=== PATIENT | male | born 1960 | race Two or more races ===

== ENCOUNTER 2018-01-26 23:31 | Inpatient (IN) | payer SELFPAY ==
[~2018-01-26] VITALS: Ht 165.1 cm; Wt 96.2 kg
[2018-01-26 23:30] VITALS: BP 108/57
[2018-01-26] MEDS ORDERED: SandoSTATIN 50mcg Inj IVP ONE (23:45)
[2018-01-26] MEDS ORDERED: Pantoprazole Inj IVP ONE (23:45)
[2018-01-27] VITALS (8 sets, daily range): BP systolic 105–130; BP diastolic 63–81
--- NOTE | 2018-01-27 00:05 | Emergency Room Report ---
History of Present Illness General Chief Complaint: Gastrointestinal Illness Source: Patient, EMS Present Illness HPI This is a 57-year-old male with a history of alcohol abuse. He drinks daily. He presents with chief complaint of vomiting blood. Onset was just prior to arrival. He said he felt nauseous and weak and had vomiting. Also with black stool. Per EMS his blood pressure was very low and they gave him IV fluid. Initial blood pressure was systolic in the 50s. After 500 mL, it went up to systolic 112. Patient felt weak. Never had this problem before. Denies any pain. Denies any syncope. Allergies: Coded Allergies: No Known Allergies (Unverified , 01/26/18) Patient History Past Medical History: see triage record, old chart reviewed Past Surgical History: other Pertinent Family History: none Social History: Reports: alcohol use Immunizations: other Reviewed Nursing Documentation: PMH: Agreed; PSxH: Agreed Nursing Documentation-PM Past Medical History: No Stated History Review of Systems Eye: Denies: eye pain, blurred vision ENT: Denies: ear pain, nose congestion, throat swelling Respiratory: Denies: cough, shortness of breath Cardiovascular: Denies: chest pain, palpitations Gastrointestinal: Reports: diarrhea, hematemesis; Denies: abdominal pain, nausea Musculoskeletal: Denies: back pain, joint pain Skin: Denies: rash Neurological: Denies: headache, numbness Endocrine: Denies: increased thirst, increased urine Hematologic/Lymphatic: Denies: easy bruising All Other Systems: negative except mentioned in HPI Physical Exam Vital Signs Date Time Temp Pulse Resp B/P (MAP) Pulse Ox O2 Delivery O2 Flow Rate FiO2 01/26/18 23:23 102 16 99 01/26/18 23:23 117/65 Room Air 01/26/18 23:30 97.1 97.1 vitals normal Sp02 EP Interpretation: reviewed, normal General Appearance: well appearing, no apparent distress, alert Head: normocephalic, atraumatic Eyes: bilateral eye PERRL, bilateral eye EOMI ENT: hearing grossly normal, normal pharynx Neck: full range of motion, supple, no meningismus Respiratory: chest non-tender, lungs clear, normal breath sounds Cardiovascular #1: regular rate, rhythm, no murmur Gastrointestinal: normal bowel sounds, non tender, no mass, no organomegaly, no bruit, non-distended Musculoskeletal: back normal, normal range of motion Neurologic: alert, oriented x3 Psychiatric: mood/affect normal Skin: other - Pale Medical Decision Making Diagnostic Impression: Primary Impression: Hematemesis/vomiting blood Qualified Codes: K92.0 - Hematemesis Additional Impressions: UGIB (upper gastrointestinal bleed) New onset type 2 diabetes mellitus Alcohol abuse ER Course Patient presents with an upper GI bleed probably secondary to esophageal varices from his alcohol abuse. Initial hemoglobin stable. Blood pressure low end of normal. I suspect that his hemoglobin will drop. Patient will be admitted for serial H&H and GI consult. I contacted Dr. Santos for admission. Lab Results Impression labs with elevated glucose EKG Diagnostic Results Rate: normal Rhythm: NSR ST Segments: no acute changes Rhythm Strip Diag. Results Rhythm Strip Time: 00:19 EP Interpretation: yes Rate: 100 Rhythm: NSR, no PVC's, no ectopy Chest X-Ray Diagnostic Results Chest X-Ray Diagnostic Results : Chest X-Ray Ordered: Yes # of Views/Limited/Complete: 1 View Indication: Chest Pain EP Interpretation: Yes Interpretation: no consolidation, no effusion, no pneumothorax, no acute cardiopulmonary disease Impression: No acute disease Electronically Signed by: Derek Felix MD Last Vital Signs Date Time Temp Pulse Resp B/P (MAP) Pulse Ox O2 Delivery O2 Flow Rate FiO2 01/26/18 23:30 97.1 100 19 108/57 98 Room Air 97.1 Status: improved Disposition: ADMITTED INPATIENT Condition: Serious DEREK FELIX M.D. Jan 27, 2018 00:05
[2018-01-27 00:06] LABS: ANION GAP 10 mmol/L (5-15); BLOOD UREA NITROGEN 45 mg/dL (7-18); CALCIUM 8.1 MG/DL (8.5-10.1); CARBON DIOXIDE 24 MMOL/L (21-32); CHLORIDE 101 MMOL/L (98-107); CREATININE 1.4 MG/DL (0.55-1.30); POTASSIUM 4.6 MMOL/L (3.5-5.1); SODIUM 135 MMOL/L (136-145)
[2018-01-27 00:08] LABS: BASOPHILS % (AUTO) 0.6 % (0.0-2.0); EOSINOPHILS % (AUTO) 2.3 % (0.0-3.0); HEMATOCRIT 37.1 % (42.0-52.0); LYMPHOCYTES % (AUTO) 21.4 % (20.0-45.0); MEAN CORPUSCULAR VOLUME 91 FL (80-99); MONOCYTES % (AUTO) 4.2 % (1.0-10.0); NEUTROPHILS % (AUTO) 71.5 % (45.0-75.0); PLATELET COUNT 239 K/UL (150-450); RED BLOOD COUNT 4.08 M/UL (4.70-6.10); RED CELL DISTRIBUTION WIDTH 12.1 % (11.6-14.8); WHITE BLOOD COUNT 15.4 K/UL (4.8-10.8)
[2018-01-27 00:11] LABS: ALANINE AMINOTRANSFERASE 42 U/L (12-78); ALBUMIN 2.7 G/DL (3.4-5.0); ALBUMIN/GLOBULIN RATIO 0.9 (1.0-2.7); ALKALINE PHOSPHATASE 76 U/L (46-116); ASPARTATE AMINO TRANSFERASE 35 U/L (15-37); BILIRUBIN,TOTAL 0.4 MG/DL (0.2-1.0)
--- NOTE | 2018-01-27 01:00 | Diagnostic Imaging Report ---
EXAM: XR Chest, 1 View CLINICAL HISTORY: SOB TECHNIQUE: Frontal view of the chest. COMPARISON: No relevant prior studies available. FINDINGS: Lungs: Hypoventilatory exam with bibasilar atelectasis. Pleural space: Unremarkable. No pneumothorax. Heart: Unremarkable. No cardiomegaly. Mediastinum: Unremarkable. Bones/joints: Unremarkable. IMPRESSION: Hypoventilatory exam with bibasilar atelectasis.
[2018-01-27] MEDS ORDERED: Morphine Sulfate 2mg/ml Inj IVP PRN (03:00)
[2018-01-27] MEDS ORDERED: LORazepam 1mg tab ORAL PRN (03:00)
[2018-01-27] MEDS: D5 1/2NS 1,000 ML IV SCH ×2 (03:13→20:34)
[2018-01-27 05:50] LABS: BASOPHILS % (AUTO) 0.8 % (0.0-2.0); EOSINOPHILS % (AUTO) 1.6 % (0.0-3.0); HEMATOCRIT 34.3 % (42.0-52.0); HEMOGLOBIN 11.2 G/DL (14.2-18.0); LYMPHOCYTES % (AUTO) 24.7 % (20.0-45.0); MEAN CORPUSCULAR VOLUME 90 FL (80-99); MONOCYTES % (AUTO) 6.8 % (1.0-10.0); NEUTROPHILS % (AUTO) 66.2 % (45.0-75.0); PLATELET COUNT 244 K/UL (150-450); RED BLOOD COUNT 3.84 M/UL (4.70-6.10); RED CELL DISTRIBUTION WIDTH 11.9 % (11.6-14.8); WHITE BLOOD COUNT 13.9 K/UL (4.8-10.8)
[2018-01-27 06:03] LABS: ALANINE AMINOTRANSFERASE 40 U/L (12-78); ALBUMIN 2.7 G/DL (3.4-5.0); ALBUMIN/GLOBULIN RATIO 0.9 (1.0-2.7); ALKALINE PHOSPHATASE 71 U/L (46-116); ANION GAP 5 mmol/L (5-15); ASPARTATE AMINO TRANSFERASE 28 U/L (15-37); BILIRUBIN,TOTAL 0.3 MG/DL (0.2-1.0); BLOOD UREA NITROGEN 41 mg/dL (7-18); CALCIUM 7.5 MG/DL (8.5-10.1); CARBON DIOXIDE 26 MMOL/L (21-32); CHLORIDE 109 MMOL/L (98-107); CREATININE 0.8 MG/DL (0.55-1.30); POTASSIUM 4.5 MMOL/L (3.5-5.1); SODIUM 140 MMOL/L (136-145)
[2018-01-27] MEDS: NovoLOG Insulin Flexpen SUBQ SCH ×4 (06:12→20:34)
[2018-01-27] MEDS ORDERED: Isovue-300 100ml vial INJ PRN (07:00)
--- NOTE | 2018-01-27 08:35 | General Progress Note ---
Assessment/Plan Problem List: (1) Alcohol abuse ICD Codes: F10.10 - Alcohol abuse, uncomplicated SNOMED: 33592409 (2) Hematemesis/vomiting blood ICD Codes: K92.0 - Hematemesis SNOMED: 6078437 Qualifiers: Qualified Codes: K92.0 - Hematemesis (3) New onset type 2 diabetes mellitus ICD Codes: E11.9 - Type 2 diabetes mellitus without complications SNOMED: 33432386 (4) UGIB (upper gastrointestinal bleed) ICD Codes: K92.2 - Gastrointestinal hemorrhage, unspecified SNOMED: 70109729 Assessment/Plan protonix dc octreotide fu H&H NPO DM control banana bag +/- EGD on Monday Subjective ROS Limited/Unobtainable: Yes Allergies: Coded Allergies: No Known Allergies (Unverified , 01/26/18) Objective Last 24 Hour Vital Signs Date Time Temp Pulse Resp B/P (MAP) Pulse Ox O2 Delivery O2 Flow Rate FiO2 01/27/18 08:00 97.7 93 22 112/67 (82) 96 97.7 01/27/18 04:00 94 01/27/18 04:00 98.6 98 22 110/68 (82) 96 98.6 01/27/18 02:26 97.9 94 22 108/63 (78) 97 97.9 01/27/18 02:08 Room Air 01/27/18 01:40 97.0 93 22 110/65 98 Room Air 93 01/27/18 01:27 97.0 93 22 110/65 98 Room Air 97.0 93 01/27/18 01:06 97.1 94 19 105/65 99 Room Air 97.1 01/26/18 23:30 97.1 100 19 108/57 98 Room Air 97.1 01/26/18 23:23 102 16 117/65 99 Room Air 01/26/18 23:23 102 16 99 Intake and Output 01/26/18 01/27/18 19:00 07:00 Intake Total 0 ml Balance 0 ml Intake Oral 0 ml # Voids 1 # Bowel Movements 2 Laboratory Tests 01/26/18 23:30: Prothrombin Time 10.8, Prothromb Time International Ratio 1.0, Activated Partial Thromboplast Time 19L, Sodium Level 135L, Potassium Level 4.6, Chloride Level 101, Carbon Dioxide Level 24, Anion Gap 10, Blood Urea Nitrogen 45H, Creatinine 1.4H, Estimat Glomerular Filtration Rate 52.1, Glucose Level 339H, Calcium Level 8.1L, Total Bilirubin 0.4, Aspartate Amino Transf (AST/SGOT) 35, Alanine Aminotransferase (ALT/SGPT) 42, Alkaline Phosphatase 76, Total Protein 5.7L, Albumin 2.7L, Globulin 3.0, Albumin/Globulin Ratio 0.9L 01/26/18 23:50: White Blood Count 15.4H, Red Blood Count 4.08L, Hemoglobin 12.0L, Hematocrit 37.1L, Mean Corpuscular Volume 91, Mean Corpuscular Hemoglobin 29.3, Mean Corpuscular Hemoglobin Concent 32.2, Red Cell Distribution Width 12.1, Platelet Count 239, Mean Platelet Volume 8.5, Neutrophils (%) (Auto) 71.5, Lymphocytes (% ) (Auto) 21.4, Monocytes (%) (Auto) 4.2, Eosinophils (%) (Auto) 2.3, Basophils ( %) (Auto) 0.6 01/27/18 05:30: Sodium Level 140, Potassium Level 4.5, Chloride Level 109H, Carbon Dioxide Level 26, Anion Gap 5, Blood Urea Nitrogen 41H, Creatinine 0.8, Estimat Glomerular Filtration Rate > 60, Glucose Level 142#H, Calcium Level 7.5L, Total Bilirubin 0.3, Aspartate Amino Transf (AST/SGOT) 28, Alanine Aminotransferase ( ALT/SGPT) 40, Alkaline Phosphatase 71, Total Protein 5.6L, Albumin 2.7L, Globulin 2.9, Albumin/Globulin Ratio 0.9L, White Blood Count 13.9H, Red Blood Count 3.84L, Hemoglobin 11.2L, Hematocrit 34.3L, Mean Corpuscular Volume 90, Mean Corpuscular Hemoglobin 29.2, Mean Corpuscular Hemoglobin Concent 32.7, Red Cell Distribution Width 11.9, Platelet Count 244, Mean Platelet Volume 8.5, Neutrophils (%) (Auto) 66.2, Lymphocytes (%) (Auto) 24.7, Monocytes (%) (Auto) 6.8, Eosinophils (%) (Auto) 1.6, Basophils (%) (Auto) 0.8 Height (Feet): 5 Height (Inches): 7.00 Weight (Pounds): 212 General Appearance: alert EENT: normal ENT inspection Neck: supple Cardiovascular: normal rate Respiratory/Chest: lungs clear Abdomen: normal bowel sounds, non tender, soft Extremities: non-tender Philip Winter MD Jan 27, 2018 08:35
[2018-01-27] MEDS: Thiamine 100mg in D5W 55ml IVPB SCH (09:49)
[2018-01-27] MEDS: Folic Acid 1 MG, Magnesium Sulfate 2,000 MG, Multivitamin - 12 Injection 10 ML in NS 10... IV SCH (10:13)
--- NOTE | 2018-01-27 12:45 | History and Physical Report ---
DATE OF ADMISSION: 01/27/2018 APPROXIMATE TIME: 9 a.m. CONSULTANTS: 1. Rajat Keith M.D. 2. Antony Mckeon M.D. 3. Dontae Pate M.D. 4. Philip Winter M.D. CHIEF COMPLAINT: Hematemesis, alcohol abuse, new diabetes, and ATN. BRIEF HISTORY: A 57-year-old male, who lives at home, presents with alcohol binge drinking, mostly beer and vodka, he is not sure how much, came to [place], diagnosed with hematemesis. Alcohol abuse was slightly inebriated. The patient was admitted to telemetry for further care. Currently, feeling little better, slight abdominal pain, no complaint. REVIEW OF SYSTEMS: No chest pain. No shortness of breath. Slight nausea. No vomiting or diarrhea. PAST MEDICAL HISTORY: He is not aware of anything. PAST SURGICAL HISTORY: None. MEDICATIONS: Include folic acid, thiamine, pantoprazole, insulin, lorazepam, morphine, Tylenol, IV fluids, and octreotide. ALLERGIES: Denies. SOCIAL HISTORY: Positive smoke. Positive alcohol. No intravenous drug abuse. FAMILY HISTORY: Noncontributory. PHYSICAL EXAMINATION: GENERAL: Slightly anxious in bed, oriented x3, no acute distress. VITAL SIGNS: Temperature 97 degrees, pulse , respirations 22, and blood pressure 112/67. CARDIOVASCULAR: No murmur. LUNGS: Distant and clear. ABDOMEN: Bowel sounds positive. Nontender. Nondistended. EXTREMITIES: No cyanosis, clubbing, or edema. NEUROLOGIC: The patient moves all extremities, but slightly weak. LABORATORY AND DIAGNOSTIC DATA: Labs, at this time, show white count 13, hemoglobin and hematocrit 11 and 34, otherwise CBC is normal. BMP shows chloride 109, BUN 41, creatinine was 1.4, now 0.8, glucose 142, initially was 339, albumin 2.7. INR is 1.0 and PTT 13. ASSESSMENT: 1. Hematemesis. 2. Alcohol abuse. 3. Anemia. 4. New diabetes. 5. Malnutrition. 6. ATN. PLAN: 1. IV fluids. 2. Detox. 3. Blood pressure and blood sugar control. 4. Pain control. 5. Dietary followup. 6. CBC and BMP in the morning. Dax Santos D.O. DR: SALIMA JOB#: [id number] CC:
--- NOTE | 2018-01-27 12:45 | Consultation ---
Consult Note Consult Note [id number] Sinan Ochoa MD Jan 27, 2018 12:45
--- NOTE | 2018-01-27 18:15 | Consultation ---
DATE OF CONSULTATION: 01/27/2018 INFECTIOUS DISEASES CONSULTATION CONSULTING PHYSICIAN: Sinan Ochoa M.D. REFERRING PHYSICIAN: Dax Santos D.O. REASON FOR CONSULTATION: Evaluation of the patient for leukocytosis, possible sepsis, antibiotic management. HISTORY OF PRESENT ILLNESS: The patient is a 57-year-old male, who was admitted to this medical center for vomiting blood. The patient has history of alcohol abuse. The patient was found to have leukocytosis. An Infectious Disease consultation has been requested for evaluation of the patient for possible infectious process contributing to the patient's leukocytosis. PAST MEDICAL HISTORY: Significant for: 1. Alcohol abuse. 2. Diabetes. SURGICAL HISTORY: None. ALLERGIES: No known drug allergies. SOCIAL HISTORY: Significant for smoking and alcohol abuse. No history of drug abuse. FAMILY HISTORY: Not contributing. MEDICATIONS: Currently off of antibiotics. PHYSICAL EXAMINATION: VITAL SIGNS: Temperature 97.3, pulse 66, respiratory rate 18, and blood pressure 128/78. HEENT: No pale conjunctivae. No icterus. NECK: Supple. CHEST: Clear. HEART: S1 and S2. ABDOMEN: Soft, nontender, obese. EXTREMITIES: No cyanosis at this time. NEUROLOGIC: Awake. LABORATORY AND DIAGNOSTIC DATA: White blood cells 13.9, hemoglobin 11, platelets 244,000. At the time of admission, white blood cells 16.4. BUN 41, creatinine 0.8. ALT, AST unremarkable. Alkaline phosphatase unremarkable. Chest x-ray showed bibasilar atelectasis. ASSESSMENT: 1. Leukocytosis due to acute bleed/acute stress, no evidence of sepsis or infection at this point. 2. History of alcohol abuse. 3. Hematemesis. 4. New-onset diabetes. PLAN: 1. We will monitor the patient off of antibiotics. 2. Monitor vital signs. 3. CBC and BMP. 4. We will follow GI recommendations EGD. 5. Based on the patient's clinical course and laboratories, we will do further recommendation. Thank you, Dr. Santos, for allowing me to participate in the care of this patient. I will follow the patient with you during this hospitalization. Sinan Ochoa M.D. DR: Tammi JOB#: [id number] CC:
[2018-01-28] VITALS: BP 158/96
[2018-01-28 04:00] VITALS: BP 126/74
[2018-01-28] MEDS: NovoLOG Insulin Flexpen SUBQ SCH ×4 (06:26→21:17)
[2018-01-28 08:00] VITALS: BP 153/88
--- NOTE | 2018-01-28 08:27 | General Progress Note ---
Assessment/Plan Problem List: (1) Alcohol abuse ICD Codes: F10.10 - Alcohol abuse, uncomplicated SNOMED: 21203457 (2) Hematemesis/vomiting blood ICD Codes: K92.0 - Hematemesis SNOMED: 7293033 Qualifiers: Qualified Codes: K92.0 - Hematemesis (3) New onset type 2 diabetes mellitus ICD Codes: E11.9 - Type 2 diabetes mellitus without complications SNOMED: 23275721 (4) UGIB (upper gastrointestinal bleed) ICD Codes: K92.2 - Gastrointestinal hemorrhage, unspecified SNOMED: 57819875 Assessment/Plan protonix fu H&H clears DM control banana bag +/- EGD if needed Subjective ROS Limited/Unobtainable: Yes Allergies: Coded Allergies: No Known Allergies (Unverified , 01/26/18) Subjective no recurrent GIB Objective Last 24 Hour Vital Signs Date Time Temp Pulse Resp B/P (MAP) Pulse Ox O2 Delivery O2 Flow Rate FiO2 01/28/18 08:00 97.7 75 20 153/88 (109) 98 97.7 01/28/18 04:00 86 01/28/18 04:00 98.4 88 20 126/74 (91) 98 98.4 01/28/18 00:00 98.4 83 20 158/96 (116) 97 98.4 01/28/18 00:00 78 01/27/18 21:00 Room Air 01/27/18 20:00 98.1 89 20 130/81 (97) 96 98.1 01/27/18 20:00 80 01/27/18 16:00 97 01/27/18 16:00 97.7 87 20 127/72 (90) 96 97.7 01/27/18 12:00 97.3 93 20 128/78 (95) 96 97.3 01/27/18 12:00 86 01/27/18 09:00 Room Air Intake and Output 01/27/18 01/28/18 19:00 07:00 Output Total 1400 ml 1500 ml Balance -1400 ml -1500 ml Output Urine Total 1400 ml 1500 ml # Voids 2 Laboratory Tests 01/28/18 07:45: White Blood Count [Pending], Red Blood Count [Pending], Hemoglobin [Pending], Hematocrit [Pending], Mean Corpuscular Volume [Pending], Mean Corpuscular Hemoglobin [Pending], Mean Corpuscular Hemoglobin Concent [Pending], Red Cell Distribution Width [Pending], Platelet Count [Pending], Mean Platelet Volume [ Pending], Neutrophils (%) (Auto) [Pending], Lymphocytes (%) (Auto) [Pending], Monocytes (%) (Auto) [Pending], Eosinophils (%) (Auto) [Pending], Basophils (%) (Auto) [Pending], Prothrombin Time [Pending], Prothromb Time International Ratio [Pending], Sodium Level [Pending], Potassium Level [Pending], Chloride Level [Pending], Carbon Dioxide Level [Pending], Blood Urea Nitrogen [Pending], Creatinine [Pending], Estimat Glomerular Filtration Rate [Pending], Glucose Level [Pending], Calcium Level [Pending], Total Bilirubin [Pending], Aspartate Amino Transf (AST/SGOT) [Pending], Alanine Aminotransferase (ALT/SGPT) [Pending] , Alkaline Phosphatase [Pending], Total Protein [Pending], Albumin [Pending], Globulin [Pending] Height (Feet): 5 Height (Inches): 7.00 Weight (Pounds): 212 General Appearance: lethargic EENT: normal ENT inspection Neck: supple Cardiovascular: normal rate Respiratory/Chest: decreased breath sounds Abdomen: normal bowel sounds, non tender, soft, no organomegaly Extremities: non-tender Philip Winter MD Jan 28, 2018 08:27
[2018-01-28 08:41] LABS: BASOPHILS % (AUTO) 0.8 % (0.0-2.0); EOSINOPHILS % (AUTO) 3.6 % (0.0-3.0); HEMATOCRIT 30.6 % (42.0-52.0); INR 0.9 (0.9-1.1); MEAN CORPUSCULAR VOLUME 90 FL (80-99); MONOCYTES % (AUTO) 4.5 % (1.0-10.0); NEUTROPHILS % (AUTO) 58.2 % (45.0-75.0); PLATELET COUNT 217 K/UL (150-450); RED BLOOD COUNT 3.39 M/UL (4.70-6.10); RED CELL DISTRIBUTION WIDTH 12.2 % (11.6-14.8)
--- NOTE | 2018-01-28 08:54 | General Progress Note ---
Assessment/Plan Problem List: (1) Alcohol abuse ICD Codes: F10.10 - Alcohol abuse, uncomplicated SNOMED: 18953581 (2) Hematemesis/vomiting blood ICD Codes: K92.0 - Hematemesis SNOMED: 9444286 Qualifiers: Qualified Codes: K92.0 - Hematemesis (3) New onset type 2 diabetes mellitus ICD Codes: E11.9 - Type 2 diabetes mellitus without complications SNOMED: 91111550 (4) UGIB (upper gastrointestinal bleed) ICD Codes: K92.2 - Gastrointestinal hemorrhage, unspecified SNOMED: 45011404 Status: unchanged Assessment/Plan bs pain control ivf gi f/u cbc bmp am dc plan Subjective Constitutional: Reports: weakness Allergies: Coded Allergies: No Known Allergies (Unverified , 01/26/18) All Systems: reviewed and negative except above Subjective sleepy calm Objective Last 24 Hour Vital Signs Date Time Temp Pulse Resp B/P (MAP) Pulse Ox O2 Delivery O2 Flow Rate FiO2 01/28/18 08:00 97.7 75 20 153/88 (109) 98 97.7 01/28/18 04:00 86 01/28/18 04:00 98.4 88 20 126/74 (91) 98 98.4 01/28/18 00:00 98.4 83 20 158/96 (116) 97 98.4 01/28/18 00:00 78 01/27/18 21:00 Room Air 01/27/18 20:00 98.1 89 20 130/81 (97) 96 98.1 01/27/18 20:00 80 01/27/18 16:00 97 01/27/18 16:00 97.7 87 20 127/72 (90) 96 97.7 01/27/18 12:00 97.3 93 20 128/78 (95) 96 97.3 01/27/18 12:00 86 01/27/18 09:00 Room Air Intake and Output 01/27/18 01/28/18 19:00 07:00 Output Total 1400 ml 1500 ml Balance -1400 ml -1500 ml Output Urine Total 1400 ml 1500 ml # Voids 2 Laboratory Tests 01/28/18 07:45: White Blood Count 10.0, Red Blood Count 3.39L, Hemoglobin 10.0L, Hematocrit 30.6L, Mean Corpuscular Volume 90, Mean Corpuscular Hemoglobin 29.4, Mean Corpuscular Hemoglobin Concent 32.6, Red Cell Distribution Width 12.2, Platelet Count 217, Mean Platelet Volume 8.1, Neutrophils (%) (Auto) 58.2, Lymphocytes (% ) (Auto) 33.0, Monocytes (%) (Auto) 4.5, Eosinophils (%) (Auto) 3.6H, Basophils (%) (Auto) 0.8, Prothrombin Time 10.0, Prothromb Time International Ratio 0.9, Sodium Level [Pending], Potassium Level [Pending], Chloride Level [Pending], Carbon Dioxide Level [Pending], Blood Urea Nitrogen [Pending], Creatinine [ Pending], Estimat Glomerular Filtration Rate [Pending], Glucose Level [Pending] , Calcium Level [Pending], Total Bilirubin [Pending], Aspartate Amino Transf ( AST/SGOT) [Pending], Alanine Aminotransferase (ALT/SGPT) [Pending], Alkaline Phosphatase [Pending], Total Protein [Pending], Albumin [Pending], Globulin [ Pending] Height (Feet): 5 Height (Inches): 7.00 Weight (Pounds): 212 General Appearance: lethargic EENT: normal ENT inspection Neck: normal alignment Cardiovascular: normal peripheral pulses, normal rate, regular rhythm Respiratory/Chest: chest wall non-tender, lungs clear, normal breath sounds Abdomen: normal bowel sounds, non tender, soft Extremities: normal inspection Edema: no edema noted Arm (L), no edema noted Arm (R), no edema noted Leg (L), no edema noted Leg (R), no edema noted Pedal (L), no edema noted Pedal (R), no edema noted Generalized Neurologic: motor weakness Skin: normal pigmentation, warm/dry Dax Santos DO Jan 28, 2018 08:54
[2018-01-28 08:56] LABS: ALANINE AMINOTRANSFERASE 37 U/L (12-78); ALKALINE PHOSPHATASE 75 U/L (46-116); ANION GAP 7 mmol/L (5-15); ASPARTATE AMINO TRANSFERASE 28 U/L (15-37); BILIRUBIN,TOTAL 0.4 MG/DL (0.2-1.0); BLOOD UREA NITROGEN 19 mg/dL (7-18); CALCIUM 8.4 MG/DL (8.5-10.1); CARBON DIOXIDE 27 MMOL/L (21-32); CHLORIDE 106 MMOL/L (98-107); CREATININE 0.9 MG/DL (0.55-1.30); POTASSIUM 4.3 MMOL/L (3.5-5.1); SODIUM 140 MMOL/L (136-145)
[2018-01-28] MEDS: Folic Acid 1 MG, Magnesium Sulfate 2,000 MG, Multivitamin - 12 Injection 10 ML in NS 10... IV SCH (10:35)
[2018-01-28] MEDS: Thiamine 100mg in D5W 55ml IVPB SCH (10:35)
[2018-01-28 12:00] VITALS: BP 131/70
--- NOTE | 2018-01-28 12:00 | General Progress Note ---
Assessment/Plan Problem List: (1) New onset type 2 diabetes mellitus ICD Codes: E11.9 - Type 2 diabetes mellitus without complications SNOMED: 30438994 (2) UGIB (upper gastrointestinal bleed) ICD Codes: K92.2 - Gastrointestinal hemorrhage, unspecified SNOMED: 16891133 (3) Hematemesis/vomiting blood ICD Codes: K92.0 - Hematemesis SNOMED: 8294567 Qualifiers: Qualified Codes: K92.0 - Hematemesis (4) Alcohol abuse ICD Codes: F10.10 - Alcohol abuse, uncomplicated SNOMED: 64508240 Assessment/Plan check A1c continue NISS Metformin won't be a good choice in the context of ETOH dependence Subjective Allergies: Coded Allergies: No Known Allergies (Unverified , 01/26/18) All Systems: reviewed and negative except above Subjective This is a 57-year-old male with a history of alcohol abuse. He drinks daily. He presents with chief complaint of vomiting blood. Onset was just prior to arrival. He said he felt nauseous and weak and had vomiting. Also with black stool. Per EMS his blood pressure was very low and they gave him IV fluid. Initial blood pressure was systolic in the 50s. After 500 mL, it went up to systolic 112. Patient felt weak. Never had this problem before. Denies any pain. Denies any syncope. Objective Last 24 Hour Vital Signs Date Time Temp Pulse Resp B/P (MAP) Pulse Ox O2 Delivery O2 Flow Rate FiO2 01/28/18 08:10 Room Air 01/28/18 08:00 97.7 75 20 153/88 (109) 98 97.7 01/28/18 07:55 76 01/28/18 04:00 86 01/28/18 04:00 98.4 88 20 126/74 (91) 98 98.4 01/28/18 00:00 98.4 83 20 158/96 (116) 97 98.4 01/28/18 00:00 78 01/27/18 21:00 Room Air 01/27/18 20:00 98.1 89 20 130/81 (97) 96 98.1 01/27/18 20:00 80 01/27/18 16:00 97 01/27/18 16:00 97.7 87 20 127/72 (90) 96 97.7 01/27/18 12:00 97.3 93 20 128/78 (95) 96 97.3 01/27/18 12:00 86 Intake and Output 01/27/18 01/28/18 19:00 07:00 Output Total 1400 ml 1500 ml Balance -1400 ml -1500 ml Output Urine Total 1400 ml 1500 ml # Voids 2 Laboratory Tests 01/28/18 07:45: White Blood Count 10.0, Red Blood Count 3.39L, Hemoglobin 10.0L, Hematocrit 30.6L, Mean Corpuscular Volume 90, Mean Corpuscular Hemoglobin 29.4, Mean Corpuscular Hemoglobin Concent 32.6, Red Cell Distribution Width 12.2, Platelet Count 217, Mean Platelet Volume 8.1, Neutrophils (%) (Auto) 58.2, Lymphocytes (% ) (Auto) 33.0, Monocytes (%) (Auto) 4.5, Eosinophils (%) (Auto) 3.6H, Basophils (%) (Auto) 0.8, Prothrombin Time 10.0, Prothromb Time International Ratio 0.9, Sodium Level 140, Potassium Level 4.3, Chloride Level 106, Carbon Dioxide Level 27, Anion Gap 7, Blood Urea Nitrogen 19H, Creatinine 0.9, Estimat Glomerular Filtration Rate > 60, Glucose Level 128H, Calcium Level 8.4L, Total Bilirubin 0.4, Aspartate Amino Transf (AST/SGOT) 28, Alanine Aminotransferase (ALT/SGPT) 37, Alkaline Phosphatase 75, Total Protein 6.0L, Albumin 3.0L, Globulin 3.0, Albumin/Globulin Ratio 1.0 Height (Feet): 5 Height (Inches): 7.00 Weight (Pounds): 212 General Appearance: no apparent distress Neck: normal alignment Cardiovascular: normal rate Respiratory/Chest: lungs clear Abdomen: normal bowel sounds Edema: no edema noted Arm (L), no edema noted Arm (R), no edema noted Leg (L), no edema noted Leg (R), no edema noted Pedal (L), no edema noted Pedal (R), no edema noted Generalized Objective Current Medications Medications (Trade) Dose Ordered Sig/[place] Route PRN Reason Start Time Stop Time Status Last Admin Dose Admin Acetaminophen (Tylenol) 650 mg Q4H PRN ORAL Mild Pain/Temp > 100.5 01/27/18 03:00 02/26/18 02:59 Dextrose (Dextrose 50%) 25 ml Q30M PRN IV Hypoglycemia 01/27/18 03:00 02/26/18 02:59 Dextrose (Dextrose 50%) 50 ml Q30M PRN IV Hypoglycemia 01/27/18 03:00 02/26/18 02:59 Dextrose/Sodium Chloride 1,000 ml @ 60 mls/hr [id number] IV 01/27/18 03:00 02/26/18 02:59 01/27/18 20:34 Folic Acid 1 mg/ Magnesium Sulfate 2000 mg/ Multivitamins 10 ml/Sodium Chloride 1,014.2 ml @ 125 mls/ hr Q24H IV 01/27/18 10:00 02/26/18 09:59 01/28/18 10:35 Insulin Aspart (NovoLOG) BEFORE MEALS AND HS SUBQ 01/27/18 06:30 02/26/18 06:29 01/27/18 06:12 Iopamidol (Isovue-300 100ml) 100 ml NOW PRN INJ Radiology Procedure 01/27/18 07:00 01/29/18 06:50 Lorazepam (Ativan) 1 mg Q4HR PRN ORAL For Anxiety 01/27/18 03:00 02/03/18 02:59 Morphine Sulfate (Morphine Sulfate) 2 mg Q4H PRN IVP For Pain 01/27/18 03:00 02/03/18 02:59 Pantoprazole (Protonix) 40 mg EVERY 12 HOURS ORAL 01/27/18 09:00 02/26/18 08:59 01/28/18 08:39 Thiamine HCl 100 mg/Sodium Chloride 56 ml @ 112 mls/hr Q24H IVPB 01/27/18 10:00 02/26/18 09:59 01/28/18 10:35 Item Value Date Time Bedside Blood Glucose 138 mg/dl H 01/28/18 1130 Bedside Blood Glucose 142 mg/dl H 01/28/18 0625 Bedside Blood Glucose 113 mg/dl 01/27/18 203 Bedside Blood Glucose 113 mg/dl 01/27/18 1630 Bedside Blood Glucose 111 mg/dl 01/27/18 1130 Antony Mckeon MD Jan 28, 2018 12:00
[2018-01-28] MEDS: D5 1/2NS 1,000 ML IV SCH (13:56)
[2018-01-28 16:00] VITALS: BP 152/84
[2018-01-28 20:00] VITALS: BP 127/79
[2018-01-29] VITALS: BP 109/65
[2018-01-29 04:00] VITALS: BP 123/85
[2018-01-29] MEDS: D5 1/2NS 1,000 ML IV SCH (06:24)
[2018-01-29] MEDS: NovoLOG Insulin Flexpen SUBQ SCH (06:24)
[2018-01-29 06:46] LABS: HEMATOCRIT 29.2 % (42.0-52.0); HEMOGLOBIN 10.1 G/DL (14.2-18.0); MEAN CORPUSCULAR VOLUME 89 FL (80-99); PLATELET COUNT 230 K/UL (150-450); RED BLOOD COUNT 3.26 M/UL (4.70-6.10); RED CELL DISTRIBUTION WIDTH 11.7 % (11.6-14.8); WHITE BLOOD COUNT 8.1 K/UL (4.8-10.8)
--- NOTE | 2018-01-29 07:00 | General Progress Note ---
Assessment/Plan Problem List: (1) New onset type 2 diabetes mellitus ICD Codes: E11.9 - Type 2 diabetes mellitus without complications SNOMED: 70934511 (2) UGIB (upper gastrointestinal bleed) ICD Codes: K92.2 - Gastrointestinal hemorrhage, unspecified SNOMED: 24685639 (3) Hematemesis/vomiting blood ICD Codes: K92.0 - Hematemesis SNOMED: 8584284 Qualifiers: Qualified Codes: K92.0 - Hematemesis (4) Alcohol abuse ICD Codes: F10.10 - Alcohol abuse, uncomplicated SNOMED: 61580116 Assessment/Plan follow A1c - pending continue NISS Metformin won't be a good choice in the context of ETOH dependence Subjective Allergies: Coded Allergies: No Known Allergies (Unverified , 01/26/18) All Systems: reviewed and negative except above Subjective events noted Objective Last 24 Hour Vital Signs Date Time Temp Pulse Resp B/P (MAP) Pulse Ox O2 Delivery O2 Flow Rate FiO2 01/29/18 04:00 88 01/29/18 04:00 98.4 80 20 123/85 (98) 96 98.4 01/29/18 00:00 98.2 90 20 109/65 (80) 98 98.2 01/29/18 00:00 72 01/28/18 21:00 Room Air 01/28/18 20:00 97.9 81 20 127/79 (95) 98 97.9 01/28/18 20:00 74 01/28/18 16:00 96.6 81 20 152/84 (106) 97 96.6 01/28/18 15:35 73 01/28/18 12:00 98.2 76 18 131/70 (90) 100 98.2 01/28/18 11:50 81 01/28/18 08:10 Room Air 01/28/18 08:00 97.7 75 20 153/88 (109) 98 97.7 01/28/18 07:55 76 Intake and Output 01/28/18 01/29/18 19:00 07:00 Intake Total 1200 ml 600 ml Output Total 1400 ml 500 ml Balance -200 ml 100 ml Intake Oral 1200 ml 600 ml Output Urine Total 1400 ml 500 ml # Voids 2 # Bowel Movements 1 Laboratory Tests 01/28/18 07:45: White Blood Count 10.0, Red Blood Count 3.39L, Hemoglobin 10.0L, Hematocrit 30.6L, Mean Corpuscular Volume 90, Mean Corpuscular Hemoglobin 29.4, Mean Corpuscular Hemoglobin Concent 32.6, Red Cell Distribution Width 12.2, Platelet Count 217, Mean Platelet Volume 8.1, Neutrophils (%) (Auto) 58.2, Lymphocytes (% ) (Auto) 33.0, Monocytes (%) (Auto) 4.5, Eosinophils (%) (Auto) 3.6H, Basophils (%) (Auto) 0.8, Prothrombin Time 10.0, Prothromb Time International Ratio 0.9, Sodium Level 140, Potassium Level 4.3, Chloride Level 106, Carbon Dioxide Level 27, Anion Gap 7, Blood Urea Nitrogen 19H, Creatinine 0.9, Estimat Glomerular Filtration Rate > 60, Glucose Level 128H, Calcium Level 8.4L, Total Bilirubin 0.4, Aspartate Amino Transf (AST/SGOT) 28, Alanine Aminotransferase (ALT/SGPT) 37, Alkaline Phosphatase 75, Total Protein 6.0L, Albumin 3.0L, Globulin 3.0, Albumin/Globulin Ratio 1.0 01/29/18 05:40: White Blood Count [Pending], Red Blood Count [Pending], Hemoglobin [Pending], Hematocrit [Pending], Mean Corpuscular Volume [Pending], Mean Corpuscular Hemoglobin [Pending], Mean Corpuscular Hemoglobin Concent [Pending], Red Cell Distribution Width [Pending], Platelet Count [Pending], Mean Platelet Volume [ Pending], Neutrophils (%) (Auto) [Pending], Lymphocytes (%) (Auto) [Pending], Monocytes (%) (Auto) [Pending], Eosinophils (%) (Auto) [Pending], Basophils (%) (Auto) [Pending], Sodium Level [Pending], Potassium Level [Pending], Chloride Level [Pending], Carbon Dioxide Level [Pending], Blood Urea Nitrogen [Pending], Creatinine [Pending], Estimat Glomerular Filtration Rate [Pending], Glucose Level [Pending], Calcium Level [Pending] Height (Feet): 5 Height (Inches): 7.00 Weight (Pounds): 212 General Appearance: no apparent distress Neck: normal alignment Cardiovascular: normal rate Respiratory/Chest: lungs clear Abdomen: normal bowel sounds Objective Current Medications Medications (Trade) Dose Ordered Sig/[place] Route PRN Reason Start Time Stop Time Status Last Admin Dose Admin Acetaminophen (Tylenol) 650 mg Q4H PRN ORAL Mild Pain/Temp > 100.5 01/27/18 03:00 02/26/18 02:59 Dextrose (Dextrose 50%) 25 ml Q30M PRN IV Hypoglycemia 01/27/18 03:00 02/26/18 02:59 Dextrose (Dextrose 50%) 50 ml Q30M PRN IV Hypoglycemia 01/27/18 03:00 02/26/18 02:59 Dextrose/Sodium Chloride 1,000 ml @ 60 mls/hr [id number] IV 01/27/18 03:00 02/26/18 02:59 01/29/18 06:24 Folic Acid 1 mg/ Magnesium Sulfate 2000 mg/ Multivitamins 10 ml/Sodium Chloride 1,014.2 ml @ 125 mls/ hr Q24H IV 01/27/18 10:00 02/26/18 09:59 01/28/18 10:35 Insulin Aspart (NovoLOG) BEFORE MEALS AND HS SUBQ 01/27/18 06:30 02/26/18 06:29 01/29/18 06:24 Lorazepam (Ativan) 1 mg Q4HR PRN ORAL For Anxiety 01/27/18 03:00 02/03/18 02:59 Morphine Sulfate (Morphine Sulfate) 2 mg Q4H PRN IVP For Pain 01/27/18 03:00 02/03/18 02:59 Pantoprazole (Protonix) 40 mg EVERY 12 HOURS ORAL 01/27/18 09:00 02/26/18 08:59 01/28/18 21:16 Thiamine HCl 100 mg/Sodium Chloride 56 ml @ 112 mls/hr Q24H IVPB 01/27/18 10:00 02/26/18 09:59 01/28/18 10:35 Item Value Date Time Bedside Blood Glucose 138 mg/dl H 01/29/18 0624 Bedside Blood Glucose 125 mg/dl H 01/28/18 2117 Bedside Blood Glucose 126 mg/dl H 01/28/18 1645 Bedside Blood Glucose 138 mg/dl H 01/28/18 1130 Bedside Blood Glucose 142 mg/dl H 01/28/18 0625 Antony Mckeon MD Jan 29, 2018 07:00
[2018-01-29 07:05] LABS: ANION GAP 6 mmol/L (5-15); BLOOD UREA NITROGEN 11 mg/dL (7-18); CALCIUM 8.5 MG/DL (8.5-10.1); CARBON DIOXIDE 27 MMOL/L (21-32); CHLORIDE 106 MMOL/L (98-107); CREATININE 0.8 MG/DL (0.55-1.30); POTASSIUM 3.9 MMOL/L (3.5-5.1); SODIUM 139 MMOL/L (136-145)
[2018-01-29 08:00] VITALS: BP 132/86
[2018-01-29] MEDS: Folic Acid 1 MG, Magnesium Sulfate 2,000 MG, Multivitamin - 12 Injection 10 ML in NS 10... IV SCH (10:00)
[2018-01-29] MEDS: Thiamine 100mg in D5W 55ml IVPB SCH (10:00)
--- NOTE | 2018-01-29 10:25 | GI Progress Note ---
Assessment/Plan Problems: (1) UGIB (upper gastrointestinal bleed) ICD Codes: K92.2 - Gastrointestinal hemorrhage, unspecified SNOMED: 48164040 (2) Hematemesis/vomiting blood ICD Codes: K92.0 - Hematemesis SNOMED: 8419858 Qualifiers: Qualified Codes: K92.0 - Hematemesis (3) Alcohol abuse ICD Codes: F10.10 - Alcohol abuse, uncomplicated SNOMED: 85020906 Status: stable Status Narrative Discussed with Dr. Winter. Assessment/Plan okay for DC per GI standpoint defer EGD at this time, H&H stable advance diet avoid alcohol DM control fu with PCP Rx Protonix 40mg x 1 month, script given to charge nurse. The patient was seen and examined at bedside and all new and available data was reviewed in the patients chart. I agree with the above findings, impression and plan. (Patient seen earlier today. Signature stamp does not reflect patient encounter time.). - Philip Winter MD Subjective Gastrointestinal/Abdominal: Reports: no symptoms Objective Last 24 Hour Vital Signs Date Time Temp Pulse Resp B/P (MAP) Pulse Ox O2 Delivery O2 Flow Rate FiO2 01/29/18 08:00 71 01/29/18 08:00 98.8 77 18 132/86 (101) 97 98.8 01/29/18 04:00 88 01/29/18 04:00 98.4 80 20 123/85 (98) 96 98.4 01/29/18 00:00 98.2 90 20 109/65 (80) 98 98.2 01/29/18 00:00 72 01/28/18 21:00 Room Air 01/28/18 20:00 97.9 81 20 127/79 (95) 98 97.9 01/28/18 20:00 74 01/28/18 16:00 96.6 81 20 152/84 (106) 97 96.6 01/28/18 15:35 73 01/28/18 12:00 98.2 76 18 131/70 (90) 100 98.2 01/28/18 11:50 81 Intake and Output 01/28/18 01/29/18 19:00 07:00 Intake Total 1200 ml 600 ml Output Total 1400 ml 500 ml Balance -200 ml 100 ml Intake Oral 1200 ml 600 ml Output Urine Total 1400 ml 500 ml # Voids 2 # Bowel Movements 1 Laboratory Tests Test 01/29/18 05:40 White Blood Count 8.1 K/UL (4.8-10.8) Red Blood Count 3.26 M/UL (4.70-6.10) L Hemoglobin 10.1 G/DL (14.2-18.0) L Hematocrit 29.2 % (42.0-52.0) L Mean Corpuscular Volume 89 FL (80-99) Mean Corpuscular Hemoglobin 30.9 PG (27.0-31.0) Mean Corpuscular Hemoglobin Concent 34.6 G/DL (32.0-36.0) Red Cell Distribution Width 11.7 % (11.6-14.8) Platelet Count 230 K/UL (150-450) Mean Platelet Volume 8.4 FL (6.5-10.1) Neutrophils (%) (Auto) % (45.0-75.0) Lymphocytes (%) (Auto) % (20.0-45.0) Monocytes (%) (Auto) % (1.0-10.0) Eosinophils (%) (Auto) % (0.0-3.0) Basophils (%) (Auto) % (0.0-2.0) Differential Total Cells Counted 100 Neutrophils % (Manual) 66 % (45-75) Lymphocytes % (Manual) 28 % (20-45) Monocytes % (Manual) 6 % (1-10) Eosinophils % (Manual) 0 % (0-3) Basophils % (Manual) 0 % (0-2) Band Neutrophils 0 % (0-8) Platelet Estimate Adequate Platelet Morphology Normal Hypochromasia 1+ Sodium Level 139 MMOL/L (136-145) Potassium Level 3.9 MMOL/L (3.5-5.1) Chloride Level 106 MMOL/L (98-107) Carbon Dioxide Level 27 MMOL/L (21-32) Anion Gap 6 mmol/L (5-15) Blood Urea Nitrogen 11 mg/dL (7-18) Creatinine 0.8 MG/DL (0.55-1.30) Estimat Glomerular Filtration Rate > 60 mL/min (>60) Glucose Level 128 MG/DL (74-106) H Hemoglobin A1c 7.6 % (4.3-6.0) H Calcium Level 8.5 MG/DL (8.5-10.1) Height (Feet): 5 Height (Inches): 5.00 Weight (Pounds): 212 General Appearance: WD/WN, no apparent distress, alert Cardiovascular: normal rate Respiratory/Chest: normal breath sounds, no respiratory distress Abdominal Exam: normal bowel sounds, non tender, soft Extremities: normal range of motion, non-tender Kenny Felix NP Jan 29, 2018 10:25
--- NOTE | 2018-01-29 11:09 | Pulmonology Progress Note ---
Assessment/Plan Problems: (1) Hematemesis/vomiting blood (2) New onset type 2 diabetes mellitus (3) UGIB (upper gastrointestinal bleed) (4) Alcohol abuse Assessment/Plan h/h better no more episode of bleeding dc planning avoid ETOH H2 blockers Subjective ROS Limited/Unobtainable: No Constitutional: Reports: no symptoms HEENT: Repors: no symptoms Respiratory: Reports: no symptoms Allergies: Coded Allergies: No Known Allergies (Unverified , 01/26/18) Objective Last 24 Hour Vital Signs Date Time Temp Pulse Resp B/P (MAP) Pulse Ox O2 Delivery O2 Flow Rate FiO2 01/29/18 09:00 Room Air 01/29/18 08:00 71 01/29/18 08:00 98.8 77 18 132/86 (101) 97 98.8 01/29/18 04:00 88 01/29/18 04:00 98.4 80 20 123/85 (98) 96 98.4 01/29/18 00:00 98.2 90 20 109/65 (80) 98 98.2 01/29/18 00:00 72 01/28/18 21:00 Room Air 01/28/18 20:00 97.9 81 20 127/79 (95) 98 97.9 01/28/18 20:00 74 01/28/18 16:00 96.6 81 20 152/84 (106) 97 96.6 01/28/18 15:35 73 01/28/18 12:00 98.2 76 18 131/70 (90) 100 98.2 01/28/18 11:50 81 Intake and Output 01/28/18 01/29/18 19:00 07:00 Intake Total 1200 ml 600 ml Output Total 1400 ml 500 ml Balance -200 ml 100 ml Intake Oral 1200 ml 600 ml Output Urine Total 1400 ml 500 ml # Voids 2 # Bowel Movements 1 General Appearance: WD/WN HEENT: normocephalic, atraumatic Respiratory/Chest: chest wall non-tender, lungs clear Cardiovascular: normal peripheral pulses, regular rhythm Abdomen: soft, non tender, no organomegaly Genitourinary: normal external genitalia Extremities: no clubbing Skin: no rash Laboratory Tests 01/29/18 05:40: White Blood Count 8.1, Red Blood Count 3.26L, Hemoglobin 10.1L, Hematocrit 29.2L , Mean Corpuscular Volume 89, Mean Corpuscular Hemoglobin 30.9, Mean Corpuscular Hemoglobin Concent 34.6, Red Cell Distribution Width 11.7, Platelet Count 230, Mean Platelet Volume 8.4, Neutrophils (%) (Auto) , Lymphocytes (%) ( Auto) , Monocytes (%) (Auto) , Eosinophils (%) (Auto) , Basophils (%) (Auto) , Differential Total Cells Counted 100, Neutrophils % (Manual) 66, Lymphocytes % ( Manual) 28, Monocytes % (Manual) 6, Eosinophils % (Manual) 0, Basophils % ( Manual) 0, Band Neutrophils 0, Platelet Estimate Adequate, Platelet Morphology Normal, Hypochromasia 1+, Sodium Level 139, Potassium Level 3.9, Chloride Level 106, Carbon Dioxide Level 27, Anion Gap 6, Blood Urea Nitrogen 11, Creatinine 0.8, Estimat Glomerular Filtration Rate > 60, Glucose Level 128H, Hemoglobin A1c 7.6H, Calcium Level 8.5 Current Medications Medications (Trade) Dose Ordered Sig/[place] Route PRN Reason Start Time Stop Time Status Last Admin Dose Admin Acetaminophen (Tylenol) 650 mg Q4H PRN ORAL Mild Pain/Temp > 100.5 01/27/18 03:00 02/26/18 02:59 Dextrose (Dextrose 50%) 25 ml Q30M PRN IV Hypoglycemia 01/29/18 07:00 02/28/18 06:59 Dextrose (Dextrose 50%) 50 ml Q30M PRN IV Hypoglycemia 01/29/18 07:00 02/28/18 06:59 Dextrose/Sodium Chloride 1,000 ml @ 60 mls/hr [id number] IV 01/27/18 03:00 02/26/18 02:59 01/29/18 06:24 Folic Acid 1 mg/ Magnesium Sulfate 2000 mg/ Multivitamins 10 ml/Sodium Chloride 1,014.2 ml @ 125 mls/ hr Q24H IV 01/27/18 10:00 02/26/18 09:59 01/28/18 10:35 Insulin Aspart (NovoLOG) BEFORE MEALS AND HS SUBQ 01/27/18 06:30 02/26/18 06:29 01/29/18 06:24 Lorazepam (Ativan) 1 mg Q4HR PRN ORAL For Anxiety 01/27/18 03:00 02/03/18 02:59 Morphine Sulfate (Morphine Sulfate) 2 mg Q4H PRN IVP For Pain 01/27/18 03:00 02/03/18 02:59 Pantoprazole (Protonix) 40 mg EVERY 12 HOURS ORAL 01/27/18 09:00 02/26/18 08:59 01/29/18 09:38 Thiamine HCl 100 mg/Sodium Chloride 56 ml @ 112 mls/hr Q24H IVPB 01/27/18 10:00 02/26/18 09:59 01/28/18 10:35 Rajat Keith MD Jan 29, 2018 11:08
[2018-01-29] MEDS ORDERED: D5 1/2NS 1000ml IV ONE (11:19)
--- NOTE | 2018-01-29 11:26 | General Progress Note ---
Assessment/Plan Problem List: (1) Alcohol abuse ICD Codes: F10.10 - Alcohol abuse, uncomplicated SNOMED: 50926212 (2) Hematemesis/vomiting blood ICD Codes: K92.0 - Hematemesis SNOMED: 1351855 Qualifiers: Qualified Codes: K92.0 - Hematemesis (3) New onset type 2 diabetes mellitus ICD Codes: E11.9 - Type 2 diabetes mellitus without complications SNOMED: 60447111 (4) UGIB (upper gastrointestinal bleed) ICD Codes: K92.2 - Gastrointestinal hemorrhage, unspecified SNOMED: 05409460 Status: stable, progressing Assessment/Plan bs pain control ivf gi f/u dc if clear Subjective Constitutional: Reports: weakness Allergies: Coded Allergies: No Known Allergies (Unverified , 01/26/18) All Systems: reviewed and negative except above Subjective wants to go home calm Objective Last 24 Hour Vital Signs Date Time Temp Pulse Resp B/P (MAP) Pulse Ox O2 Delivery O2 Flow Rate FiO2 01/29/18 09:00 Room Air 01/29/18 08:00 71 01/29/18 08:00 98.8 77 18 132/86 (101) 97 98.8 01/29/18 04:00 88 01/29/18 04:00 98.4 80 20 123/85 (98) 96 98.4 01/29/18 00:00 98.2 90 20 109/65 (80) 98 98.2 01/29/18 00:00 72 01/28/18 21:00 Room Air 01/28/18 20:00 97.9 81 20 127/79 (95) 98 97.9 01/28/18 20:00 74 01/28/18 16:00 96.6 81 20 152/84 (106) 97 96.6 01/28/18 15:35 73 01/28/18 12:00 98.2 76 18 131/70 (90) 100 98.2 01/28/18 11:50 81 Intake and Output 01/28/18 01/29/18 19:00 07:00 Intake Total 1200 ml 600 ml Output Total 1400 ml 500 ml Balance -200 ml 100 ml Intake Oral 1200 ml 600 ml Output Urine Total 1400 ml 500 ml # Voids 2 # Bowel Movements 1 Laboratory Tests 01/29/18 05:40: White Blood Count 8.1, Red Blood Count 3.26L, Hemoglobin 10.1L, Hematocrit 29.2L , Mean Corpuscular Volume 89, Mean Corpuscular Hemoglobin 30.9, Mean Corpuscular Hemoglobin Concent 34.6, Red Cell Distribution Width 11.7, Platelet Count 230, Mean Platelet Volume 8.4, Neutrophils (%) (Auto) , Lymphocytes (%) ( Auto) , Monocytes (%) (Auto) , Eosinophils (%) (Auto) , Basophils (%) (Auto) , Differential Total Cells Counted 100, Neutrophils % (Manual) 66, Lymphocytes % ( Manual) 28, Monocytes % (Manual) 6, Eosinophils % (Manual) 0, Basophils % ( Manual) 0, Band Neutrophils 0, Platelet Estimate Adequate, Platelet Morphology Normal, Hypochromasia 1+, Sodium Level 139, Potassium Level 3.9, Chloride Level 106, Carbon Dioxide Level 27, Anion Gap 6, Blood Urea Nitrogen 11, Creatinine 0.8, Estimat Glomerular Filtration Rate > 60, Glucose Level 128H, Hemoglobin A1c 7.6H, Calcium Level 8.5 Height (Feet): 5 Height (Inches): 5.00 Weight (Pounds): 212 General Appearance: alert EENT: normal ENT inspection Neck: normal alignment Cardiovascular: normal peripheral pulses, normal rate, regular rhythm Respiratory/Chest: chest wall non-tender, lungs clear, normal breath sounds Abdomen: normal bowel sounds, non tender, soft Extremities: normal inspection Edema: no edema noted Arm (L), no edema noted Arm (R), no edema noted Leg (L), no edema noted Leg (R), no edema noted Pedal (L), no edema noted Pedal (R), no edema noted Generalized Neurologic: responsive, motor weakness Skin: normal pigmentation, warm/dry Dax Santos DO Jan 29, 2018 11:26
--- NOTE | 2018-01-30 12:17 | Discharge Summary ---
Discharge Summary Discharge Summary _ DATE OF ADMISSION: 01/27/2018 DATE OF DISCHARGE: 01/29/2018 REASON FOR ADMISSION: 57 years old male with history of alcohol abuse , presented with complaint of vomiting blood which happened just prior to his arrival to emergency department. Patient reported feeling nauseous and week prior to episode of vomiting. Patient also reported black stool. Blood pressure was low in the field with systolic in the 50s. After receiving bolus, paramedics stated that blood pressure was increased to 112. Patient reported daily drinking . Upon evaluation in emergency department, blood pressure 117/65 ,mild tachycardia 102 ,pulse oximetry stable on room air. Laboratory workup revealed leukocytosis with WBC 15.4, hemoglobin 12, hematocrit 37.1, stable LFT, no coagulopathy. Blood glucose 339. Albumin 3.0. BUN 45 creatinine 1.4 . Patient admitted with diagnoses of hematemesis/upper GI bleeding, new onset of diabetes mellitus type 2, alcohol abuse, acute tubular necrosis, anemia, malnutrition. CONSULTANTS: pulmonary Dr. Keith ID specialist Dr. Ochoa GI specialist Dr. Winter building mover Dr. Mckeon [facility] COURSE: Patient admitted to telemetry floor. Patient started on IV banana bag. Patient received Sandostatin and Protonix drips. No further episodes of upper GI bleeding. Patient slowly started on diet and was advanced as tolerated . Antiemetics provided as needed. Supportive care provided. Blood pressure remained stable. Patient was able to tolerate diet . Pain management was addressed as needed. Patient was on PPI. Hemoglobin and hematocrit were closely monitored with goal to keep hemoglobin above 7 . Prior to discharge hemoglobin 10.1 and hematocrit 29.2. GI specialist closely followed. He deferred EGD at this time, given stable hemoglobin and hematocrit. Patient was counseled on abstinence from alcohol abuse. Patient was given prescription for Protonix for 1 month. Blood sugar was managed with sliding scale of insulin . Cna Pct followed due to new onset of diabetes mellitus type 2. Hemoglobin A1c 7.6. Patient will need to follow up with primary care provider for further management of diabetes . Dietary supplements provided to improve nutritional status, Patient stabilized and was ready for discharge. FINAL DIAGNOSES: Upper GI bleeding Alcohol abuse New-onset of diabetes mellitus type 2 Acute tubular necrosis , resolved Malnutrition Anemia DISCHARGE MEDICATIONS: Patient was provided with script for Protonix for 1 month DISCHARGE INSTRUCTIONS: Patient was discharged home with home health services. Follow up with primary care provider in one week. Patient was counseled on abstinence from alcohol. I have been assigned to dictate discharge summary for this account. I was not involved in the patient's management. Allison Long NP Jan 30, 2018 12:17
--- NOTE | 2018-01-30 19:11 | Cardiology Report ---
APPROVED REPORT EKG Measurement Heart [id number] [place] 130P4 [id number] Normal sinus rhythm Normal ECG
== END 2018-01-29 11:20 | disposition home or self-care (01) | DRG 377 ==
LOC: EDBD 23:31 → EMR 01-27 00:22 → EDBEDREQ 01-27 01:22 → MERGE 01-27 01:28 → 2E 01-27 01:28
DX: K92.2 Gastrointestinal hemorrhage, unspecified (principal); N17.0 Acute kidney failure with tubular necrosis; E46 Unspecified protein-calorie malnutrition; E11.9 Type 2 diabetes mellitus without complications; F10.10 Alcohol abuse, uncomplicated; D64.9 Anemia, unspecified
CPT/HCPCS: 36415; 71045; 80048; 80053; 82962; 83036; 85007; 85025; 85610; 85730; 86850; 86900; 86901; 93005; 96361; 96374; 99285; J1815